=== PATIENT | female | born 1965 | race Caucasian/White ===

== ENCOUNTER 2016-10-08 16:00 | Emergency (ER) | payer MEDICARE ==
[~2016-10-08 16:00] MED LIST: ASPIRIN325 M1 PO; B-12250 MCG PO; BUTALB-APAP-CA1 EACH PO; CYMBALTA30 MG PO; FIORINAL CAPSUL1 CAP PO; FLUOXETINE HCL20 M1 PO; GAS RELIEF125 MG PO; LAMICTAL ODT50 MG PO; LAMICTAL25 MG PO; LEVOTHROID125 MCG PO; LEVOXYL125 MC1 PO; PAIN RELIEF500 MG PO; PRILOSEC PO; PROZAC40 MG PO; RANITIDINE HCL150 M1 PO; REQUIP0.25 MG PO; STOOL SOFTENER1 EACH PO; TOPAMAX PO; TOPAMAX200 MG PO; TRAMADOL HCL50 M1 PO; VITAMIN D50000 UNIT PO
== END 2016-10-08 19:30 | disposition home or self-care (01) ==
LOC: CED 16:00 → CFTX 16:00
DX: K04.7 Periapical abscess without sinus (principal); R22.0 Localized swelling, mass and lump, head; Z88.5 Allergy status to narcotic agent
CPT/HCPCS: 96365; 96375; 99284; J1200; J2270